=== PATIENT | male | born 1955 | race Caucasian/White ===

== ENCOUNTER 2017-07-25 05:38 | Inpatient (IN) | payer OTHER ==
[~2017-07-25] VITALS: Ht 182.9 cm; Wt 83.1 kg
[~2017-07-25 05:38] MED LIST: ASCO10004 PO; ASPI-621 PO; CHOL500015 PO; CYAN100028 PO; GLUC-120 PO; IBUP-1484 PO; IRON PO; OMEG1CAP24 PO; OXYC1TAB9 PO
[2017-07-25] MEDS ORDERED: LACTATED RINGERS 1,000 ML IV SCH (06:14)
[2017-07-25 06:17] VITALS: BP 152/80
[2017-07-25] MEDS ORDERED: BUPIVACAINE/PF 0.5% ONE ×2 (06:57→07:08)
[2017-07-25] MEDS ORDERED: EPINEPHRINE 1 MG/ML, 1ML ONE (06:57)
[2017-07-25] MEDS ORDERED: ACETAMINOPHEN 500 MG TABLET ONE (07:04)
[2017-07-25] MEDS ORDERED: BUPIVACAINE 0.25% ONE (07:08)
[2017-07-25] MEDS ORDERED: PROPOFOL 10 MG/ML, 20ML ONE (07:35)
[2017-07-25] MEDS ORDERED: CEFAZOLIN 1,000 MG ONE (07:35)
[2017-07-25] MEDS ORDERED: ROCURONIUM 10 MG/ML ONE (07:35)
[2017-07-25] MEDS ORDERED: SUCCINYLCHOLINE 20 MG/ML, 10ML ONE (07:35)
[2017-07-25] MEDS ORDERED: DEXAMETHASONE 4 MG/ML, 1ML ONE (07:35)
[2017-07-25] MEDS ORDERED: ONDANSETRON 2MG/ML, 2ML ONE (07:35)
[2017-07-25] MEDS ORDERED: LABETALOL 5MG/ML, 20ML IV PRN (08:30)
[2017-07-25] MEDS ORDERED: PROMETHAZINE 25 MG/ML, 1ML IV PRN (08:30)
[2017-07-25] MEDS ORDERED: ONDANSETRON 2MG/ML, 2ML IVPush PRN ×2 (08:30→10:00)
[2017-07-25] MEDS ORDERED: hydrALAzine 20 MG/ML, 1ML IV PRN (08:30)
[2017-07-25] MEDS ORDERED: OXYcodone 5 MG/5 ML ORAL.SOL UDC PO PRN (08:30)
[2017-07-25] MEDS ORDERED: MIDAZOLAM 1 MG/ML, 2ML IV PRN (08:30)
[2017-07-25] MEDS ORDERED: NEOSPORIN OINT, 15GM ONE (09:10)
[2017-07-25] MEDS ORDERED: VANCOMYCIN PER PHARMACY MC PRN (10:00)
[2017-07-25] MEDS ORDERED: BISACODYL 10 MG SUPP PR PRN (10:00)
[2017-07-25] MEDS ORDERED: MAGNESIUM HYDROXIDE 8%, 30ML UDC PO PRN (10:00)
[2017-07-25] MEDS ORDERED: SENNA/DOCUSATE TABLET PO PRN (10:00)
[2017-07-25] MEDS ORDERED: FENTANYL PF 100 MCG/2ML ONE (10:04)
[2017-07-25] MEDS ORDERED: OXYcodone 5 MG/5 ML ORAL.SOL UDC ONE (10:04)
[2017-07-25] MEDS: FENTANYL PF 100 MCG/2ML IV PRN ×2 (10:07→10:14)
[2017-07-25] MEDS ORDERED: HYDROmorphone 2 MG/ML, 1ML ONE (10:15)
[2017-07-25] MEDS: HYDROmorphone 1 MG/ML, 1ML IV PRN ×2 (10:17→10:36)
[2017-07-25 11:10] VITALS: BP 126/66
[2017-07-25] MEDS ORDERED: PHARMACOKINETIC CONSULTATION MC ONE (11:30)
[2017-07-25] MEDS ORDERED: PHARMACOKINETIC MONITORING MC PRN (11:30)
[2017-07-25] MEDS ORDERED: ENOXAPARIN 40 MG/0.4 ML SQ SCH (12:00)
[2017-07-25] MEDS: D5%-0.45NACL+KCL 20MEQ 1,000 ML IV SCH ×2 (12:14→20:17)
[2017-07-25] MEDS: VANCOMYCIN 1,600 MG in SODIUM CHLORIDE 0.9% 250 ML IV SCH (12:14)
[2017-07-25] MEDS: OXYcodone/APAP 5/325MG TABLET PO PRN ×2 (13:56→18:45)
[2017-07-25 14:49] VITALS: BP 134/63
[2017-07-25] MEDS: CEFAZOLIN PMX 1GM/50ML 50 ML IVPB SCH (15:53)
[2017-07-25 19:06] VITALS: BP 121/68
[2017-07-25] MEDS: DOCUSATE 100 MG CAPSULE PO SCH (20:16)
[2017-07-26 00:01] VITALS: BP 127/67
[2017-07-26 03:54] VITALS: BP 157/76
[2017-07-26] MEDS: ENOXAPARIN 40 MG/0.4 ML SQ SCH (04:00)
[2017-07-26] MEDS: OXYcodone/APAP 5/325MG TABLET PO PRN ×3 (04:00→08:31)
[2017-07-26] MEDS: morphine SULFATE 10 MG/ML, 1ML IVPush PRN ×3 (04:03→22:26)
[2017-07-26 07:13] VITALS: BP 152/72
[2017-07-26] MEDS: MULTIVITAMINS/MINERALS TABLET PO SCH (08:27)
[2017-07-26] MEDS: CEFAZOLIN PMX 1GM/50ML 50 ML IVPB SCH ×3 (08:27→15:51)
[2017-07-26] MEDS: DOCUSATE 100 MG CAPSULE PO SCH ×2 (08:27→22:25)
[2017-07-26] MEDS: D5%-0.45NACL+KCL 20MEQ 1,000 ML IV SCH (11:27)
[2017-07-26] MEDS: OXYcodone IR 5MG TABLET PO PRN ×4 (11:27→22:25)
[2017-07-26] MEDS: VANCOMYCIN 1,600 MG in SODIUM CHLORIDE 0.9% 250 ML IV SCH (12:33)
[2017-07-26 14:15] VITALS: BP 146/76
[2017-07-26 19:06] VITALS: BP 182/81
[2017-07-27] MEDS: D5%-0.45NACL+KCL 20MEQ 1,000 ML IV SCH ×2 (00:25→07:55)
[2017-07-27] MEDS: CEFAZOLIN PMX 1GM/50ML 50 ML IVPB SCH ×2 (00:25→08:36)
[2017-07-27 03:09] VITALS: BP 177/79
[2017-07-27] MEDS: OXYcodone IR 5MG TABLET PO PRN ×3 (04:23→12:15)
[2017-07-27] MEDS: morphine SULFATE 10 MG/ML, 1ML IVPush PRN (04:23)
[2017-07-27] MEDS: ENOXAPARIN 40 MG/0.4 ML SQ SCH (06:43)
[2017-07-27 08:33] VITALS: BP 159/85
[2017-07-27] MEDS: DOCUSATE 100 MG CAPSULE PO SCH (08:34)
[2017-07-27] MEDS: MULTIVITAMINS/MINERALS TABLET PO SCH (08:34)
[2017-07-27] MEDS: VANCOMYCIN 1,600 MG in SODIUM CHLORIDE 0.9% 250 ML IV SCH (12:16)
[2017-07-27] MEDS ORDERED: OXYC5CAP2 PO (12:44)
[2017-07-27 12:45] VITALS: BP 155/85
[2017-07-27] MEDS ORDERED: ASPI-650 PO (12:54)
[2017-07-27] MEDS ORDERED: ACET-1757 PO (12:54)
[2017-07-27] MEDS ORDERED: DOCU-131 PO (12:54)
[2017-07-27] MEDS ORDERED: LINE600T37 PO (12:58)
== END 2017-07-27 13:20 | disposition home or self-care (01) | DRG 858 ==
LOC: OUT 05:38 → EDSTATUS 07:30 → ORIP 09:45 → 4NOR 11:03 → DCLOUNGE 07-27 12:40
PROVIDERS: ADMIT Orthopaedic Surgery; ATTEND Orthopaedic Surgery
PROC: 0SPG0JZ Removal of Synthetic Substitute from Left Ankle Joint, Open Approach (ICD-10-PCS; 2017-07-25)
PROC: 0SGG0JZ Fusion of Left Ankle Joint with Synthetic Substitute, Open Approach (ICD-10-PCS; principal; 2017-07-25 07:30)
DX: T81.4XXA Infection following a procedure, initial encounter (principal); M12.572 Traumatic arthropathy, left ankle and foot; S82.872A Displaced pilon fracture of left tibia, initial encounter for closed fracture; X58.XXXA Exposure to other specified factors, initial encounter; Y83.9 Surgical procedure, unspecified as the cause of abnormal reaction of the patient, or of later complication, without mention of misadventure at the time of the procedure; Y93.89 Activity, other specified; Y92.89 Other specified places as the place of occurrence of the external cause; Y99.8 Other external cause status
CPT/HCPCS: 36415; 76001; 82565; 87070; 87075; 87176; 87205; C1713; J0171; J0690; J1100; J1170; J1650; J2405; J2704; J3010; J3370; J3490; C1762; J0330; J2270; J3480; J7050; J7120